=== PATIENT | female | born 1945 | race Caucasian/White ===

== ENCOUNTER 2017-11-25 10:46 | Emergency (ER) | payer MEDICARE ==
[~2017-11-25] VITALS: Ht 152.4 cm; Wt 92.1 kg
[2017-11-25 11:32] LABS: BASOPHILS # (AUTO) 0.03 x10^3/uL (0-0.1); BASOPHILS % (AUTO) 0 % (0-1); EOSINOPHILS # (AUTO) 0.32 x10^3/uL (0-0.4); EOSINOPHILS % (AUTO) 4 % (1-7); LYMPHOCYTES # (AUTO) 1.21 x10^3/uL (1-3.4); LYMPHOCYTES % (AUTO) 16 % (22-44); MD NO; MEAN CORPUSCULAR HEMOGLOBIN 30.3 pg (27.0-34.8); MEAN CORPUSCULAR HGB CONC 33.8 g/dL (32.4-35.8); MEAN CORPUSCULAR VOLUME 89.6 fL (80-100); MONOCYTES # (AUTO) 0.65 x10^3/uL (0.2-0.8); MONOCYTES % (AUTO) 9 % (2-9); NEUTROPHILS # (AUTO) 5.31 x10^3/uL (1.8-6.8); NEUTROPHILS % (AUTO) 71 % (42-75); PLATELET COUNT 279 x10^3/uL (130-400); RED BLOOD COUNT 4.37 x10^6/uL (3.82-5.3); RED CELL DISTRIBUTION WIDTH 13.3 % (9.6-15.2)
[2017-11-25 11:44] LABS: ALBUMIN 3.8 g/dL (3.4-5.0); ANION GAP 9 mmol/L (5-15); CALCIUM 8.5 mg/dL (8.5-10.1); CHLORIDE 104 mmol/L (98-107); CREATININE 2.04 mg/dL (0.55-1.02)
[2017-11-25 13:25] VITALS: BP 140/71
== END 2017-11-25 13:35 | disposition home or self-care (01) ==
LOC: ED 12:09
DX: M79.604 Pain in right leg (principal); I10 Essential (primary) hypertension
CPT/HCPCS: 36415; 80048; 82040; 83735; 85025; 99285

== ENCOUNTER → 2017-11-28 | Outpatient (CLI) | payer MEDICARE | END | disposition home or self-care (01) | LOC: RAD 09:57 | PROVIDERS: ATTEND Family Medicine | DX: M51.16 Intervertebral disc disorders with radiculopathy, lumbar region (principal) | CPT/HCPCS: 72148 ==

== ENCOUNTER 2019-05-20 10:01 | Inpatient (IN) | payer MEDICARE ==
[~2019-05-20] VITALS: Ht 157.5 cm; Wt 92.0 kg
--- NOTE | 2019-05-20 10:04 | NUR ---
Pt pushed in wheelchair by security to room.
--- NOTE | 2019-05-20 10:17 | NUR ---
Received report from SHAWNEE Stewart. All questions answered. NADN. Pt connected to NIBP cuff, continous pulse ox, and slot service specialist. Call light within reach. Bedrails up x 2. Spouse at bedside. VSS. Please see charting.
[2019-05-20] MEDS ORDERED: ASPIRIN 81 MG TABLET CHEW ONE (10:42)
[2019-05-20] MEDS ORDERED: SODIUM CHLORIDE FLUSH 10ML SYR IVF ONE (11:00)
[2019-05-20] MEDS ORDERED: ASPIRIN 81 MG TABLET CHEW PO ONE (11:00)
[2019-05-20 11:04] LABS: BASOPHILS # (AUTO) 0.04 x10^3/uL (0-0.1); BASOPHILS % (AUTO) 0 % (0-1); EOSINOPHILS # (AUTO) 0.77 x10^3/uL (0-0.4); EOSINOPHILS % (AUTO) 10 % (1-7); LYMPHOCYTES # (AUTO) 1.08 x10^3/uL (1-3.4); LYMPHOCYTES % (AUTO) 14 % (22-44); MD NO; MEAN CORPUSCULAR HEMOGLOBIN 30.9 pg (27.0-34.8); MEAN CORPUSCULAR HGB CONC 33.2 g/dL (32.4-35.8); MEAN PLATELET VOLUME 7.9 fL (7.4-10.4); MONOCYTES # (AUTO) 0.66 x10^3/uL (0.2-0.8); MONOCYTES % (AUTO) 8 % (2-9); NEUTROPHILS # (AUTO) 5.38 x10^3/uL (1.8-6.8); NEUTROPHILS % (AUTO) 68 % (42-75); PLATELET COUNT 233 x10^3/uL (130-400); RED BLOOD COUNT 4.83 x10^6/uL (3.82-5.3); RED CELL DISTRIBUTION WIDTH 14.1 % (9.6-15.2)
[2019-05-20 11:16] LABS: ALANINE AMINOTRANSFERASE 32 U/L (12-78); ALBUMIN 3.9 g/dL (3.4-5.0); ANION GAP 8 mmol/L (5-15); CALCIUM 8.7 mg/dL (8.5-10.1); CHLORIDE 106 mmol/L (98-107); CREATININE 1.97 mg/dL (0.55-1.02)
[2019-05-20 11:20] LABS: ALKALINE PHOSPHATASE 90 U/L (45-117); BILIRUBIN,TOTAL 1.1 mg/dL (0.2-1.0); TOTAL PROTEIN 7.2 g/dL (6.4-8.2); TROPONIN I < 0.015 ng/mL (0.000-0.045)
--- NOTE | 2019-05-20 11:54 | NUR ---
LUNCH RN: ADDITIONAL ORDERS RECEIVED AT THIS TIME FOR V/Q SCAN.
[2019-05-20] MEDS ORDERED: PANTOPRAZOLE (12:14)
[2019-05-20] MEDS ORDERED: PRAM0.5T PO (12:14)
[2019-05-20] MEDS ORDERED: LEVO88TA4 PO (12:14)
[2019-05-20] MEDS ORDERED: CITA20TA6 PO (12:14)
[2019-05-20] MEDS ORDERED: SPIR25TA5 PO (12:14)
[2019-05-20] MEDS ORDERED: LOVA20TA2 PO (12:14)
--- NOTE | 2019-05-20 12:39 | NUR ---
Provided report to SHAWNEE Brewster. All questions answered. Pt ready to transfer to floor from ED.
--- NOTE | 2019-05-20 12:55 | NUR ---
Pt transfered from ED to floor on [facility] and left with all personal belongings.
[2019-05-20 15:01] VITALS: BP 126/78
[2019-05-20] MEDS ORDERED: SODIUM CHLORIDE 0.9% 1,000 ML IV SCH (17:00)
[2019-05-20] MEDS ORDERED: NITROGLYCERIN 0.4 MG BOTTLE (25 TABS) SL PRN (17:30)
[2019-05-20] MEDS ORDERED: ONDANSETRON 2MG/ML, 2ML IVPush PRN (17:30)
[2019-05-20] MEDS ORDERED: ACETAMINOPHEN 325 MG TABLET PO PRN (17:30)
[2019-05-20] MEDS ORDERED: NITROGLYCERIN 0.4 MG/SPRAY SL PRN (17:30)
[2019-05-20 19:06] LABS: TROPONIN I < 0.015 ng/mL (0.000-0.045)
[2019-05-20 19:29] VITALS: BP 109/72
[2019-05-20] MEDS: HEPARIN 5,000 UNITS/ML, 1ML SQ SCH (20:53)
[2019-05-20] MEDS ORDERED: PRAMIPEXOLE 0.5MG TABLET PO SCH (21:00)
[2019-05-20] MEDS ORDERED: LOVASTATIN 20 MG TABLET PO SCH (21:00)
[2019-05-20] MEDS ORDERED: CITALOPRAM 20 MG TABLET PO SCH (21:00)
[2019-05-20] MEDS ORDERED: ALBUTEROL SULFATE 2.5 MG/3 ML NPPB PRN (21:30)
[2019-05-20 23:46] LABS: TROPONIN I < 0.015 ng/mL (0.000-0.045)
[2019-05-21 00:56] VITALS: BP 101/72
[2019-05-21 05:41] LABS: BASOPHILS # (AUTO) 0.04 x10^3/uL (0-0.1); BASOPHILS % (AUTO) 1 % (0-1); EOSINOPHILS # (AUTO) 0.83 x10^3/uL (0-0.4); EOSINOPHILS % (AUTO) 14 % (1-7); LYMPHOCYTES # (AUTO) 1.35 x10^3/uL (1-3.4); LYMPHOCYTES % (AUTO) 22 % (22-44); MD NO; MEAN CORPUSCULAR HEMOGLOBIN 30.5 pg (27.0-34.8); MEAN CORPUSCULAR HGB CONC 33.3 g/dL (32.4-35.8); MEAN CORPUSCULAR VOLUME 91.5 fL (80-100); MEAN PLATELET VOLUME 7.3 fL (7.4-10.4); MONOCYTES # (AUTO) 0.67 x10^3/uL (0.2-0.8); MONOCYTES % (AUTO) 11 % (2-9); NEUTROPHILS # (AUTO) 3.17 x10^3/uL (1.8-6.8); NEUTROPHILS % (AUTO) 52 % (42-75); PLATELET COUNT 213 x10^3/uL (130-400); RED BLOOD COUNT 4.51 x10^6/uL (3.82-5.3)
[2019-05-21 05:57] LABS: CHLORIDE 104 mmol/L (98-107)
[2019-05-21] MEDS: HEPARIN 5,000 UNITS/ML, 1ML SQ SCH (05:57)
[2019-05-21] MEDS ORDERED: LEVOTHYROXINE 88 MCG TABLET PO SCH ×2 (06:00→09:00)
[2019-05-21 06:26] LABS: ALANINE AMINOTRANSFERASE 29 U/L (12-78); ALBUMIN 3.6 g/dL (3.4-5.0); ALKALINE PHOSPHATASE 78 U/L (45-117); ANION GAP 7 mmol/L (5-15); BILIRUBIN,TOTAL 1.5 mg/dL (0.2-1.0); CALCIUM 8.8 mg/dL (8.5-10.1); TOTAL PROTEIN 6.7 g/dL (6.4-8.2)
[2019-05-21 07:16] VITALS: BP 113/77
[2019-05-21] MEDS ORDERED: CETIRIZINE 10 MG TABLET PO SCH (09:00)
== END 2019-05-21 12:40 | disposition home or self-care (01) | DRG 392 ==
LOC: ED 12:01 → EDIP 12:08 → 5SO 13:23 → DCLOUNGE 05-21 12:38
PROVIDERS: ADMIT Internal Medicine; ATTEND Internal Medicine
DX: K22.4 Dyskinesia of esophagus (principal); N18.4 Chronic kidney disease, stage 4 (severe); R17 Unspecified jaundice; K21.9 Gastro-esophageal reflux disease without esophagitis; E03.9 Hypothyroidism, unspecified; E78.5 Hyperlipidemia, unspecified; G25.81 Restless legs syndrome; I12.9 Hypertensive chronic kidney disease with stage 1 through stage 4 chronic kidney disease, or unspecified chronic kidney disease; J45.909 Unspecified asthma, uncomplicated; K25.9 Gastric ulcer, unspecified as acute or chronic, without hemorrhage or perforation; Z85.038 Personal history of other malignant neoplasm of large intestine; Z87.11 Personal history of peptic ulcer disease; Z90.49 Acquired absence of other specified parts of digestive tract
CPT/HCPCS: 36415; 71045; 76705; 78582; 80053; 82607; 83735; 84100; 84443; 84484; 85025; 85379; 93005; 93017; 96372; G0378; J1644; A9540; A9558

== ENCOUNTER → 2019-11-24 | Outpatient (CLI) | payer MEDICARE ==
[~2019-11-24] MED LIST: CITA20TA6 PO; LEVO88TA4 PO; LOVA20TA2 PO; PANTOPRAZOLE; PRAM0.5T PO; SPIR25TA5 PO
== END | disposition home or self-care (01) ==
LOC: RAD 16:36
PROVIDERS: ATTEND Emergency Medicine
DX: M79.661 Pain in right lower leg (principal)